=== PATIENT | male | born 2000 | race Caucasian/White ===

== ENCOUNTER 2018-07-24 17:01 | Emergency (ER) | payer BC, OTHER ==
[~2018-07-24] VITALS: Ht 177.8 cm; Wt 65.8 kg
--- NOTE | 2018-07-24 17:22 | NUR ---
TO ROOM REPORTS PAIN BETTER.
[2018-07-24 18:54] LABS: BASOPHILS % (AUTO) 1 % (0-10); EOSINOPHILS # (AUTO) 0.2 10^3/uL (0.0-0.3); EOSINOPHILS % (AUTO) 4 % (0-10); HEMATOCRIT 43 % (40-54); HEMOGLOBIN 14.8 G/DL (13.3-17.7); LYMPHOCYTES % (AUTO) 35 % (12-44); MEAN CORPUSCULAR HEMOGLOBIN 32 PG (25-34); MEAN CORPUSCULAR HGB CONC 35 G/DL (32-36); MEAN CORPUSCULAR VOLUME 91 FL (80-99); MONOCYTES # (AUTO) 0.8 X 10^3 (0.0-1.0); MONOCYTES % (AUTO) 14 % (0-12); NEUTROPHILS # (AUTO) 2.7 X 10^3 (1.8-7.8); NEUTROPHILS % (AUTO) 46 % (42-75); PLATELET COUNT 310 10^3/uL (130-400); RED CELL DISTRIBUTION WIDTH 12.3 % (10.0-14.5); WHITE BLOOD COUNT 5.8 10^3/uL (4.3-11.0)
--- NOTE | 2018-07-24 19:04 | NUR ---
REPORT TO PIYUSH
--- NOTE | 2018-07-24 19:06 | Diagnostic Imaging Report ---
INDICATION: Chest pain radiating into the left arm. TIME OF EXAM: 6:53 PM No prior studies are available for comparison. FINDINGS: The heart size is normal. The pulmonary vascularity is unremarkable. The lungs are clear. No infiltrate, effusion or pneumothorax is detected. IMPRESSION: No acute cardiopulmonary process is detected. Dictated by: Dictated on workstation # [id number]
[2018-07-24 19:11] LABS: ALANINE AMINOTRANSFERASE 10 U/L (0-55); ALBUMIN 4.7 GM/DL (3.2-4.5); ALKALINE PHOSPHATASE 89 U/L (40-136); BILIRUBIN,TOTAL 0.3 MG/DL (0.1-1.0); BUN/CREATININE RATIO 17; CALCIUM 9.6 MG/DL (8.5-10.1); CARBON DIOXIDE 26 MMOL/L (21-32); CHLORIDE 103 MMOL/L (98-107); CREATININE SERUM 0.95 MG/DL (0.60-1.30); GFR ESTIMATED > 60; GLUCOSE 96 MG/DL (70-105); POTASSIUM 4.2 MMOL/L (3.6-5.0); SODIUM 138 MMOL/L (135-145); TOTAL PROTEIN 7.6 GM/DL (6.4-8.2)
--- NOTE | 2018-07-24 19:35 | ED Chest Pain ---
General Chief Complaint: Chest Pain Stated Complaint: CHEST PAIN Nursing Triage Note: pt arrived pov with friend with c/o sharp stabbing chest pain that happened an hour ago. Pt couldn't breathe or move and said pain was 10/10. Pt's friend said he was screaming out in pain. Called in [place] and they suggested an ER visit. No pain since just a small muscle ache on the left side of chest. Nursing Sepsis Screen: No Definite Risk Source: patient Exam Limitations: no limitations History of Present Illness Date Seen by Provider: Jul 24, 2018 Time Seen by Provider: 18:19 Initial Comments This 17-year-old young man presents to the emergency room with complaints of sudden onset of left-sided chest pain that started around 15:30. He was lying down and resting at the time of onset. At that time it was very painful to breathe or move. He now states the pain is more of a mild ache with an occasional burst of sharper pain. His pain now ranges from 2-4 out of 10. It was 8/10 at its worst. He denies any acute trauma but he does exercise 5 days per week. He recently drove to and from home near [place] but denies any lower extremity symptoms. He denies tobacco use. He contacted his primary care provider's office in [place], and he was directed to the ER. Allergies and Home Medications Home Medications No Active Prescriptions or Reported Meds Patient Home Medication List Home Medication List Reviewed: Yes Review of Systems Review of Systems Constitutional: no symptoms reported EENTM: No Symptoms Reported Respiratory: See HPI Cardiovascular: No Symptoms Reported Gastrointestinal: No Symptoms Reported Genitourinary: No Symptoms Reported Musculoskeletal: see HPI Skin: no symptoms reported Psychiatric/Neurological: No Symptoms Reported Endocrine: No Symptoms Reported Hematologic/Lymphatic: No Symptoms Reported Past [id number] Hx Past Med/Social Hx: Reviewed and Corrections made Patient Social History Alcohol Use: Occasionally Uses Recreational Drug Use: No Smoking Status: Never a Smoker Recent Foreign Travel: No Contact w/Someone Who Travel: No Recent Infectious Disease Expo: No Past Medical History Surgeries: No Cardiac: No Neurological: No Genitourinary: No Gastrointestinal: No Musculoskeletal: No Endocrine: No HEENT: No Cancer: No Psychosocial: No Family Medical History Reviewed and Corrections made Heart Disease Physical Exam Vital Signs Vital Signs - First Documented 07/24/18 07/24/18 17:10 19:45 Temp 98.2 Pulse 78 Resp 18 B/P (MAP) 144/64 (90) Pulse Ox 96 O2 Delivery Room Air Capillary Refill : Less Than 3 Seconds Height, Weight, BMI Height: 5'10.00" Weight: 145lbs. oz. 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 Norm as Tested Skin: Normal Color, Warm/Dry Progress/Results/Core Measures Results/Orders Lab Results Laboratory Tests Test 07/24/18 18:46 Range/Units White Blood Count 5.8 4.3-11.0 10^3/uL Red Blood Count 4.70 4.35-5.85 10^6/uL Hemoglobin 14.8 13.3-17.7 G/DL Hematocrit 43 40-54 % Mean Corpuscular Volume 91 80-99 FL Mean Corpuscular Hemoglobin 32 25-34 PG Mean Corpuscular Hemoglobin Concent 35 32-36 G/DL Red Cell Distribution Width 12.3 10.0-14.5 % Platelet Count 310 130-400 10^3/uL Mean Platelet Volume 9.0 7.4-10.4 FL Neutrophils (%) (Auto) 46 42-75 % Lymphocytes (%) (Auto) 35 12-44 % Monocytes (%) (Auto) 14 H 0-12 % Eosinophils (%) (Auto) 4 0-10 % Basophils (%) (Auto) 1 0-10 % Neutrophils # (Auto) 2.7 1.8-7.8 X 10^3 Lymphocytes # (Auto) 2.0 1.0-4.0 X 10^3 Monocytes # (Auto) 0.8 0.0-1.0 X 10^3 Eosinophils # (Auto) 0.2 0.0-0.3 10^3/uL Basophils # (Auto) 0.0 0.0-0.1 10^3/uL D-Dimer < 0.27 0.00-0.49 UG/ML Sodium Level 138 135-145 MMOL/L Potassium Level 4.2 3.6-5.0 MMOL/L Chloride Level 103 98-107 MMOL/L Carbon Dioxide Level 26 21-32 MMOL/L Anion Gap 9 5-14 MMOL/L Blood Urea Nitrogen 16 7-18 MG/DL Creatinine 0.95 0.60-1.30 MG/DL Estimat Glomerular Filtration Rate > 60 BUN/Creatinine Ratio 17 Glucose Level 96 70-105 MG/DL Calcium Level 9.6 8.5-10.1 MG/DL Corrected Calcium 8.5-10.1 MG/DL Total Bilirubin 0.3 0.1-1.0 MG/DL Aspartate Amino Transf (AST/SGOT) 17 5-34 U/L Alanine Aminotransferase (ALT/SGPT) 10 0-55 U/L Alkaline Phosphatase 89 40-136 U/L Troponin I < 0.028 <0.028 NG/ML Total Protein 7.6 6.4-8.2 GM/DL Albumin 4.7 H 3.2-4.5 GM/DL My Orders Orders - MARK DAVIS MD Cbc With Automated Diff (07/24/18 18:29) Comprehensive Metabolic Panel (07/24/18 18:29) Fibrin Degradation Products (07/24/18 18:29) Troponin I (07/24/18 18:29) Monitor-Rhythm Ecg Trace Only (07/24/18 18:29) Chest Pa/Lat (2 View) (07/24/18 18:29) Vital Signs/I&O 07/24/18 07/24/18 17:10 19:45 Temp 98.2 98.2 Pulse 78 67 Resp 18 18 B/P (MAP) 144/64 (90) 124/77 (93) Pulse Ox 96 O2 Delivery Room Air Room Air Blood Pressure Mean: 90 Progress Progress Note : Progress Note Workup was unremarkable. Patient had minimal discomfort of a pleuritic nature during his ER stay. He was offered Toradol but declined. He was also offered a GI cocktail but he declined as he did not think this was a GI associated pain. The pain seemed to be more left lateral than central. He is encouraged to continue his workup with his primary care provider and return to care if symptoms worsen again. Initial ECG Impression Date: Jul 24, 2018 Initial ECG Impression Time: 17:29 Initial ECG Rate: 69 Initial ECG Rhythm: Normal Sinus Initial ECG Intervals: Normal Comment Normal sinus rhythm. Subtle ST changes in the inferior leads suggestive of early repolarization pattern. No ischemic ST elevation or depression. No abnormal intervals or axis deviation. Diagnostic Imaging Diagonstic Imaging: Xray Plain Films/CT/US/NM/MRI: chest Comments Chest x-ray viewed by me and report reviewed. See report below: NAME: MARISABEL COOK MED REC#: [id number] PT STATUS: REG ER : 2000 PHYSICIAN: MARK DAVIS MD ADMIT DATE: 07/24/18/ER Signed Date of Exam: 07/24/18 CHEST PA/LAT (2 VIEW) INDICATION: Chest pain radiating into the left arm. TIME OF EXAM: 6:53 PM No prior studies are available for comparison. FINDINGS: The heart size is normal. The pulmonary vascularity is unremarkable. The lungs are clear. No infiltrate, effusion or pneumothorax is detected. IMPRESSION: No acute cardiopulmonary process is detected. Dictated by: Dictated on workstation # [id number] Dict: 07/24/181903 Trans: 07/24/181928 Interpreted by: KISHORE DUMONT MD Electronically signed by: KISHORE DUMONT MD 07/24/181928 Departure Impression Primary Impression: Pleuritic chest pain Disposition: 01 HOME, SELF-CARE Condition: Improved Departure-Patient Inst. Decision time for Depature: 19:30 Patient Instructions: Chest Pain That Is Not Caused by the Heart (DC) Add. Discharge Instructions: You may take ibuprofen up to 600 mg every 6 hours as needed for pain and/or Tylenol (acetaminophen) up to 1000 mg every 6 hours. Take ibuprofen with food or milk to avoid irritation on your stomach. It is possible your pain could be related to acid reflux. You may trial on antacid medication such as omeprazole or Pepcid (famotidine) twice daily for 1-2 weeks. These medications may be purchased [id number]. Follow-up with your primary care provider as soon as possible. Return to emergency room if you have worsening symptoms. All discharge instructions reviewed with patient and/or family. Voiced understanding. Scripts No Active Prescriptions or Reported Meds MARK DAVIS MD Jul 24, 2018 19:34
[2018-07-24 19:45] VITALS: BP 124/77
== END 2018-07-24 19:47 | disposition home or self-care (01) ==
LOC: ER 17:04
DX: R07.81 Pleurodynia (principal); Z82.49 Family history of ischemic heart disease and other diseases of the circulatory system
CPT/HCPCS: 36415; 71046; 80053; 84484; 85025; 85379; 93005; 93041